=== PATIENT | male | born 2000 | race Caucasian/White ===

== ENCOUNTER 2018-12-24 18:05 | Emergency (ER) | payer OTHER ==
[~2018-12-24] VITALS: Ht 170.2 cm; Wt 68.2 kg
[2018-12-24] MEDS ORDERED: ACET-683 PO (18:14)
[2018-12-24] MEDS ORDERED: ACETAMINOPHEN 325 MG TAB PO ONE (21:00)
[2018-12-24 22:01] LABS: MONO SCRN NEGATIVE (NEGATIVE)
[2018-12-24 22:09] LABS: INFLUENZA A AMPLIFICATION NEGATIVE (NEGATIVE); INFLUENZA B AMPLIFICATION NEGATIVE (NEGATIVE)
[2018-12-24] MEDS ORDERED: IBUPROFEN 800 MG TAB PO ONE (22:30)
[2018-12-24 22:34] VITALS: BP 107/55
[2018-12-24] MEDS ORDERED: IBUP80TA PO (22:36)
== END 2018-12-24 22:41 | disposition home or self-care (01) ==
LOC: M ED 18:05
DX: B34.9 Viral infection, unspecified (principal); F17.210 Nicotine dependence, cigarettes, uncomplicated

== ENCOUNTER 2020-04-18 20:14 | Emergency (ER) | payer OTHER ==
[~2020-04-18] VITALS: Ht 170.2 cm; Wt 76.9 kg
[~2020-04-18 20:14] MED LIST: ACET-683 PO; IBUP80TA PO
[2020-04-18] MEDS ORDERED: NAPR-885 PO (20:44)
[2020-04-18] MEDS ORDERED: ZYBAN PO (20:51)
--- NOTE | 2020-04-18 21:34 | REPVR ---
PROCEDURE INFORMATION: Exam: CT Head Without Contrast Exam date and time: 04/18/2020 9:09 PM Age: 19 years old Clinical indication: Injury or trauma; Other: Object fell on head; Blunt trauma (contusions or hematomas); Additional info: Dropped 30 pound metal plate on head, headache, dizziness TECHNIQUE: Imaging protocol: Computed tomography of the head without contrast. Radiation optimization: All CT scans at this facility use at least one of these dose optimization techniques: automated exposure control; mA and/or kV adjustment per patient size (includes targeted exams where dose is matched to clinical indication); or iterative reconstruction. COMPARISON: No relevant prior studies available. FINDINGS: Brain: No intracranial hemorrhage or extra-axial fluid collection. No evidence of mass effect or midline shift. Kirkpatrick-white matter differentiation is intact. Cerebral ventricles: No ventriculomegaly. Bones/joints: No acute osseus lesion or fracture. Paranasal sinuses: Visualized sinuses are unremarkable. No fluid levels. Mastoid air cells: Unremarkable. Soft tissues: Unremarkable. IMPRESSION: No acute intracranial pathology. Electronically signed by: Elmer Weaver On 04/18/2020 21:34:12 PM
[2020-04-18] MEDS ORDERED: ONDA4TAB6 PO (21:42)
[2020-04-18] MEDS ORDERED: ACETAMINOPHEN TAB 650MG DOSE (2X325MG) PO ONE (21:45)
[2020-04-18] MEDS ORDERED: ONDANSETRON 4 MG ORAL DISINTEGRATING TAB PO ONE (21:45)
[2020-04-18 21:48] VITALS: BP 137/89
== END 2020-04-18 22:03 | disposition home or self-care (01) ==
LOC: M ED 20:14
DX: S06.0X9A Concussion with loss of consciousness of unspecified duration, initial encounter (principal); W20.8XXA Other cause of strike by thrown, projected or falling object, initial encounter; Y92.89 Other specified places as the place of occurrence of the external cause; Y93.89 Activity, other specified; Y99.0 Civilian activity done for income or pay; F17.210 Nicotine dependence, cigarettes, uncomplicated
CPT/HCPCS: 70450; 99283; Q0162

== ENCOUNTER → 2020-05-31 | Outpatient (CLI) | payer OTHER ==
[~2020-05-31] MED LIST changes: +NAPR-885 PO; +ONDA4TAB6 PO; +ZYBAN PO
== END ==
LOC: M LABSMTC 10:10
PROVIDERS: ATTEND Family Medicine
DX: Z20.828 Contact with and (suspected) exposure to other viral communicable diseases (principal)

== ENCOUNTER 2021-08-31 20:25 | Emergency (ER) | payer OTHER ==
[~2021-08-31] VITALS: Ht 170.2 cm; Wt 84.1 kg
[2021-08-31] MEDS ORDERED: IBUP-1022 PO (20:47)
[2021-09-01] MEDS ORDERED: KETOROLAC 30 MG/ML 1ML VIAL IV ONE (05:25)
[2021-09-01] MEDS ORDERED: NS 1,000 ML IV ONE (05:25)
[2021-09-01] MEDS ORDERED: diphenhydrAMINE 50MG/ML VIAL (J1200) IV ONE (05:25)
[2021-09-01] MEDS ORDERED: METOCLOPRAMIDE INJ 10MG/2ML VIAL (J2765 PER 1) IV ONE (05:25)
[2021-09-01 05:41] VITALS: BP 136/87
== END 2021-09-01 06:59 | disposition home or self-care (01) ==
LOC: M ED 20:25
DX: S06.0X0A Concussion without loss of consciousness, initial encounter (principal); Y92.9 Unspecified place or not applicable; Y93.23 Activity, snow (alpine) (downhill) skiing, snowboarding, sledding, tobogganing and snow tubing; Y99.9 Unspecified external cause status
CPT/HCPCS: 70450; 96361; 96374; 96375; 99284; J1200; J1885; J2765